=== PATIENT | female | born 1935 | race Caucasian/White ===

== ENCOUNTER → 2016-07-04 | Outpatient (CLI) | payer MEDICARE, BC ==
--- NOTE | 2016-07-04 12:35 | RAD ---
SHAISTA, 07/04/2016: History: Abdominal pain, constipation There is a moderate amount of stool scattered throughout the colon. The abdominal gas pattern is otherwise unremarkable. There is no evidence of organomegaly. Aortoiliac calcific plaquing is present. Mild degenerative changes are evident in the spine. IMPRESSION: Increased stool in the colon.
== END | disposition home or self-care (01) ==
LOC: DXRADRC 11:13
PROVIDERS: ATTEND General Practice
DX: K59.00 Constipation, unspecified (principal); R10.84 Generalized abdominal pain
CPT/HCPCS: 74000

== ENCOUNTER → 2016-09-20 | Outpatient (CLI) | payer MEDICARE, BC ==
[2016-09-20] MEDS: BARIUM SULFATE 60% 355 ML SUSP PO ONE ×2 (11:27)
--- NOTE | 2016-09-20 12:13 | RAD ---
Indication loose stools for several months. In anticipation of a small bowel series preliminary films of the abdomen were obtained. The preliminary films are unremarkable. Contrast was administered orally and followed through the small bowel to the large bowel. Transit to the large bowel is relatively rapid. Contrast administered orally is seen in the large bowel 20 minutes following the oral administration of same. Jejunal loops appear normal. Ileal loops also appeared normal. No strictured segment or mass was seen. No strictured segment is seen in the terminal ileum. 3 spot fluoroscopic images were obtained associated with the exam. Fluoroscopy time associated with the study was 0.8 minutes. IMPRESSION: Normal small bowel series
== END | disposition home or self-care (01) ==
LOC: RAD 10:40
PROVIDERS: ATTEND Internal Medicine Gastroenterology
DX: R19.7 Diarrhea, unspecified (principal)
CPT/HCPCS: 74250

== ENCOUNTER → 2017-08-21 | Outpatient (CLI) | payer MEDICARE, BC ==
--- NOTE | 2017-08-21 18:17 | RAD ---
Swallow study 08/21/2017 INDICATION: Dysphagia. COMPARISON: None available. TECHNIQUE: Fluoroscopic evaluation of swallow function was performed after the ingestion of thin and nectar thick barium liquids as well as pureed and solid compounds. Fluoroscopy time: 2.3 minutes Number images: 0 FINDINGS: There is no aspiration or penetration with all consistencies ingested. There is minimal premature spillage with pureed substances into the vallecula. No nasopharyngeal reflux. There is minimal residual noted after the thin liquids within the vallecula and perform sinuses which cleared after subsequent swallow. IMPRESSION: No evidence for aspiration with all consistencies ingested. Please refer to the separate speech pathology report for further details. Electronically signed by: Radha Sun MD (08/21/2017 6:14 PM) [id number]
== END | disposition home or self-care (01) ==
LOC: DXRAD 12:52
PROVIDERS: ATTEND General Practice
DX: R13.10 Dysphagia, unspecified (principal)
CPT/HCPCS: 74230; 92611; G8996; G8997; G8998

== ENCOUNTER 2018-12-17 10:50 | Emergency (ER) | payer MEDICARE, BC ==
[~2018-12-17] VITALS: Ht 162.6 cm; Wt 66.2 kg
--- NOTE | 2018-12-17 12:15 | RAD ---
CT HEAD INDICATION: Trauma COMPARISON: None Available. Exposure: One or more of the following individualized dose reduction techniques were utilized for this examination: 1. Automated exposure control 2. Adjustment of the mA and/or kV according to patient size 3. Use of iterative reconstruction technique TECHNIQUE: 5 mm contiguous axial images were obtained from the skull base to the vertex in both bone and soft tissue algorithm. FINDINGS: No abnormal attenuation within the brain parenchyma. No evidence of acute intracranial hemorrhage. No extra-axial fluid collections. No mass effect or midline shift. Ventricular size is appropriate. Basal cisterns are patent. No fractures identified.Figueroa-white differentiation is preserved.Globes and orbits are within normal limits. Paranasal sinuses and mastoid air cells are clear. IMPRESSION: No acute intracranial findings. Electronically signed by: Carlos Boyd MD (12/17/2018 12:12 PM) [facility]
--- NOTE | 2018-12-17 12:24 | RAD ---
Examination: LUMBAR SPINE 2-3V, HAND LEFT 3V History: Trauma, fell last night, pain. Bruising along the proximal metacarpals. Comparison/Correlation: None Findings: Three-view exam of the left hand was performed. Degenerative remodeling and spurring of the distal interphalangeal joints of the second through the fifth digits is noted. Degenerative narrowing and remodeling of the proximal interphalangeal joints are lesser extent are also seen and this is greatest at the second digit. Metacarpophalangeal joints are unremarkable. No fracture or bony destruction. No radiopaque foreign body. Soft tissues are grossly unremarkable. Three-view lumbar spine x-ray exam was performed including frontal and lateral views. Alignment of the lumbar spine is normal. Severe disc space narrowing is present from L4 to S1 with endplate sclerosis. Moderate L3-4 disc space narrowing is also suggested. No fracture or bony destruction. Sacroiliac joint degenerative changes are present. Vertebral body heights are adequate. Impression: Interphalangeal joint degenerative changes. No acute process. Degenerative changes of the lower lumbar spine. No acute process. Electronically signed by: Shin Echols MD (12/17/2018 12:21 PM) [facility]
[2018-12-17 12:47] VITALS: BP 138/59
--- NOTE | 2018-12-17 12:48 | PHYS DOC ---
Past History Past Medical History: CAD, High Cholesterol, Other Additional Past Medical Histor: PARKINSONS Past Surgical History: Coronary Bypass Surgery, Other Additional Past Surgical Histo: CARPAL TUNNEL Alcohol Use: None Drug Use: None Adult General Chief Complaint Chief Complaint: MECHANICAL FALL HPI HPI Patient is a 83-year-old female suffered a mechanical fall fecal caught up when she was getting up from a chair yesterday hit head left arm and left low back pain is [id number] tenderness of some tingling going down to the buttock area no blood thinners no loss of consciousness no recent illnesses no fever symptoms are moderate slowly worsening with time dull in nature Review of Systems Review of Systems Constitutional: Denies fever or chills [] Eyes: Denies change in visual acuity, redness, or eye pain [] HENT: Denies nasal congestion or sore throat [] GI: Denies abdominal pain, nausea, vomiting, bloody stools or diarrhea [] : Denies dysuria or hematuria [] Musculoskeletal: Neurologic: Denies headache, focal weakness or sensory changes [] All other systems were reviewed and found to be within normal limits, except as documented in this note. Allergies Allergies Allergies Coded Allergies Type Severity Reaction Last Updated Verified protamine Adverse Reaction Severe Lowers blood pressure 09/20/16 Yes Physical Exam Physical Exam Constitutional: Well developed, well nourished, no acute distress, non-toxic appearance. [] HENT: Normocephalic, contusion noted zygomatic arch on the left, bilateral external ears normal, oropharynx moist, no oral exudates, nose normal. [] Eyes: PERRLA, EOMI, conjunctiva normal, no discharge. [] Neck: Normal range of motion, no tenderness, supple, no stridor. [] Cardiovascular:Heart rate regular rhythm, no murmur [] Lungs & Thorax: Bilateral breath sounds clear to auscultation [] Abdomen: Bowel sounds normal, soft, no tenderness, no masses, no pulsatile masses. [] Skin: Warm, dry, no erythema, no rash. [] Back: Mild paraspinous tenderness on the left Extremities: Contusion with ecchymosis noted left dorsum of the hand ring was removed by me no snuffbox tenderness Neurologic: Alert and oriented X 3, normal motor function, normal sensory function, no focal deficits noted. [] Psychologic: Affect normal, judgement normal, mood normal. [] Current Patient Data Vital Signs Vital Signs Date Time Temp Pulse Resp B/P (MAP) Pulse Ox O2 Delivery O2 Flow Rate FiO2 12/17/18 11:20 98.3 62 16 99 Room Air EKG EKG [] Radiology/Procedures Radiology/Procedures [] Course & Med Decision Making Course & Med Decision Making Pertinent Labs and Imaging studies reviewed. (See chart for details) []Imaging of traumatic areas was negative acute patient was reassured ambulate with a steady gait in the emergency room head CT hand x-ray lumbar spine x-ray all negative Dragon Disclaimer Dragon Disclaimer This electronic medical record was generated, in whole or in part, using a voice recognition dictation system. Departure Departure: Impression: Primary Impression: Head injury Disposition: 01 HOME, SELF-CARE Condition: STABLE Patient Instructions: Head Injury, Adult, [id number] ROSALIO SERVIN MD Dec 17, 2018 12:48
== END 2018-12-17 12:51 | disposition home or self-care (01) ==
LOC: ER 10:50
DX: S00.83XA Contusion of other part of head, initial encounter (principal); S60.222A Contusion of left hand, initial encounter; R51 Headache; M54.5 Low back pain; I25.810 Atherosclerosis of coronary artery bypass graft(s) without angina pectoris; E78.00 Pure hypercholesterolemia, unspecified; Z88.8 Allergy status to other drugs, medicaments and biological substances; W18.09XA Striking against other object with subsequent fall, initial encounter; Y93.89 Activity, other specified; Y92.89 Other specified places as the place of occurrence of the external cause; Y99.8 Other external cause status
CPT/HCPCS: 70450; 72100; 73130; 99284

== ENCOUNTER 2019-01-26 11:48 | Inpatient (IN) | payer MEDICARE, BC ==
[~2019-01-26] VITALS: Ht 162.6 cm; Wt 67.4 kg
--- NOTE | 2019-01-26 12:29 | PHYS DOC ---
Past History Past Medical History: CAD, High Cholesterol, Other Additional Past Medical Histor: PARKINSONS Past Surgical History: Coronary Bypass Surgery, Other Additional Past Surgical Histo: CARPAL TUNNEL Alcohol Use: None Drug Use: None Adult General Chief Complaint Chief Complaint: COUGH HPI HPI 83-year-old female presents with 3-4 day history of cough. She is now having productive cough with a thicker yellowish sputum. Patient has no history of COPD or smoking. She has not measured a fever, but admits to chills at night last night. She has general weakness due to this illness. She denies chest pain. She has no other complaints at this time. Review of Systems Review of Systems Constitutional: chills. general weakness [] Eyes: Denies change in visual acuity, redness, or eye pain [] HENT: Denies nasal congestion or sore throat [] Respiratory: Copugh with shortness of breath [] Cardiovascular: No additional information not addressed in HPI [] GI: Denies abdominal pain, nausea, vomiting, bloody stools or diarrhea [] : Denies dysuria or hematuria [] Musculoskeletal: Denies back pain or joint pain [] Integument: Denies rash or skin lesions [] Neurologic: Denies headache, focal weakness or sensory changes [] Endocrine: Denies polyuria or polydipsia [] All other systems were reviewed and found to be within normal limits, except as documented in this note. Allergies Allergies Allergies Coded Allergies Type Severity Reaction Last Updated Verified protamine Adverse Reaction Severe Lowers blood pressure 09/20/16 Yes Physical Exam Physical Exam Constitutional: Well developed, well nourished, no acute distress, non-toxic appearance. [] HENT: Normocephalic, atraumatic, bilateral external ears normal, oropharynx moist, no oral exudates, nose normal. [] Eyes: PERRLA, EOMI, conjunctiva normal, no discharge. [] Neck: Normal range of motion, no tenderness, supple, no stridor. [] Cardiovascular:Heart rate regular rhythm, no murmur [] Lungs & Thorax: Bilateral breath sounds clear to auscultation [] Abdomen: Bowel sounds normal, soft, no tenderness, no masses, no pulsatile masses. [] Skin: Warm, dry, no erythema, no rash. [] Back: No tenderness, no CVA tenderness. [] Extremities: No tenderness, no cyanosis, no clubbing, ROM intact, no edema. [] Neurologic: Alert and oriented X 3, normal motor function, normal sensory function, no focal deficits noted. [] Psychologic: Affect normal, judgement normal, mood normal. [] EKG EKG Sinus rhythm, rate 78, normal axis, no ST elevations or depressions.[] Radiology/Procedures Radiology/Procedures [] Course & Med Decision Making Course & Med Decision Making Pertinent Labs and Imaging studies reviewed. (See chart for details) Asians no a white count of 14.7. She does not have a fever. She is not t achycardic. It is normal. Her blood pressures normal. Her chest x-ray significant for left-sided pneumonia. Jazmin in the ED. I spoke with Dr. Robins and he has accepted the patient for admission. [] Dragon Disclaimer Dragon Disclaimer This electronic medical record was generated, in whole or in part, using a voice recognition dictation system. Departure Departure: Impression: Primary Impression: Pneumonia Disposition: ADMITTED INPATIENT Admitting Physician: Kwasi Robins Condition: STABLE Referrals: KAILASH SEALS DO (PCP) Problem Qualifiers Primary Impression: Pneumonia Pneumonia type: due to unspecified organism Laterality: left Lung location: upper lobe of lung Qualified Codes: J18.9 - Pneumonia, unspecified organism ROSEMARIE SHELTON DO Jan 26, 2019 12:29
[2019-01-26 12:30] LABS: BASO % 0 % (0-3); EOS % 0 % (0-3); HEMATOCRIT 37.2 % (36.0-47.0); HEMOGLOBIN 12.1 g/dL (12.0-15.5); LYMPH # 0.5 x10^3/uL (1.0-4.8); LYMPH % 4 % (24-48); MEAN CORPUSCULAR HEMOGLOBIN 31 pg (25-35); MEAN CORPUSCULAR HGB CONC 33 g/dL (31-37); MEAN CORPUSCULAR VOLUME 96 fL (79-100); MONO # 0.9 x10^3/uL (0.0-1.1); MONO % 6 % (0-9); NEUT # 13.2 x10^3uL (1.8-7.7); NEUT % 90 % (31-73); PLATELET COUNT 250 x10^3/uL (140-400); RED BLOOD COUNT 3.87 x10^6/uL (3.50-5.40); RED CELL DISTRIBUTION WIDTH 12.7 % (11.5-14.5); WHITE BLOOD COUNT 14.7 x10^3/uL (4.0-11.0)
--- NOTE | 2019-01-26 12:45 | RAD ---
CHEST AP ONLY 01/26/2019 12:00 PM INDICATION: Cough COMPARISON: None available TECHNIQUE: Portable frontal view of the chest is provided. FINDINGS: The cardiomediastinal silhouette is within normal limits. Median sternotomy changes are present. Consolidative changes identified in the left upper lobe which may represent atelectasis versus infiltrate. A central left suprahilar mass remains in the differential. There are no significant pleural effusions. There is no pulmonary vascular congestion. No pneumothorax. IMPRESSION: Left upper lobe/lingular atelectasis and/or infiltrate. Central obstructive mass remains in the differential and follow-up to resolution versus CT chest is recommended. Electronically signed by: Radha Sun MD (01/26/2019 12:42 PM) [facility]
[2019-01-26 12:48] LABS: ALBUMIN 2.6 g/dL (3.4-5.0); ALBUMIN/GLOBULIN RATIO 0.5 (1.0-1.7); ALK PHOS 131 U/L (46-116); ANION GAP 12 (6-14); AST (SGOT) 29 U/L (15-37); BLOOD UREA NITROGEN 13 mg/dL (7-20); BUN/CREATININE RATIO 11 (6-20); CALCIUM 9.1 mg/dL (8.5-10.1); CARBON DIOXIDE 25 mmol/L (21-32); CHLORIDE 99 mmol/L (98-107); CREATININE 1.2 mg/dL (0.6-1.0); GFR 42.9; GLUCOSE 124 mg/dL (70-99); POTASSIUM 4.2 mmol/L (3.5-5.1); SODIUM 136 mmol/L (136-145); TOTAL BILIRUBIN 1.5 mg/dL (0.2-1.0); TOTAL PROTEIN 7.4 g/dL (6.4-8.2)
[2019-01-26 12:49] LABS: ALT (SGPT) < 6 U/L (14-59)
[2019-01-26] MEDS ORDERED: PIPERACILLIN/TAZOBACTAM 3.375 GM in IV NORMAL SALINE 50ML 50 ML IV ONE (13:15)
[2019-01-26] MEDS ORDERED: IV NORMAL SALINE 50ML 50 ML ONE (13:25)
[2019-01-26 13:26] LABS: BILIRUBIN,URINE NEG (NEG); CLARITY,URINE HAZY; COLOR,URINE AMBER; GLUCOSE,URINE NEG (NEG)
[2019-01-26] MEDS ORDERED: PIPERACILLIN/TAZOBACTAM 3.375 GM VIAL IV ONE (13:26)
[2019-01-26 13:29] LABS: NITRITE,URINE NEG (NEG); UROBILINOGEN,URINE 0.2 mg/dL (0.2 mg/dL)
[2019-01-26 13:30] LABS: BACTERIA,URINE FEW /HPF (0-FEW); RBC,URINE RARE /HPF (0-2)
[2019-01-26 13:31] LABS: SQUAMOUS EPITHELIAL CELL,UR MANY /LPF
[2019-01-26] MEDS ORDERED: ACETAMINOPHEN 325 MG TABLET PO PRN (14:00)
[2019-01-26] MEDS ORDERED: ONDANSETRON PF 4 MG/2 ML VIAL. IV PRN (14:00)
[2019-01-26 14:45] VITALS: BP 153/70
[2019-01-26] MEDS ORDERED: ACET500T68 PO (15:18)
[2019-01-26] MEDS ORDERED: [UNRECOGNIZED DRUG - OTHER] PO (15:18)
[2019-01-26] MEDS ORDERED: PROG100C10 PO (15:18)
[2019-01-26] MEDS ORDERED: ASPI-630 PO (15:18)
[2019-01-26] MEDS ORDERED: DONE10TA7 PO (15:18)
[2019-01-26] MEDS ORDERED: LACT1CAP6 PO (15:18)
[2019-01-26] MEDS ORDERED: PROG200C10 PO (15:18)
[2019-01-26] MEDS ORDERED: CHOL100014 PO (15:18)
[2019-01-26] MEDS ORDERED: UBID100T5 PO (15:18)
[2019-01-26] MEDS ORDERED: CARB1TAB22 PO ×2 (15:18)
[2019-01-26] MEDS ORDERED: MULT-240 PO (15:18)
[2019-01-26] MEDS ORDERED: OMEG1CAP38 PO (15:18)
[2019-01-26] MEDS ORDERED: [UNRECOGNIZED DRUG - OTHER] PO (15:18)
--- NOTE | 2019-01-26 15:20 | NUR ---
NURSING NOTE ADMIT PT ADMIT TO ROOM 107 VIA EMS ACCOMPANIED BY EMS PERSONNEL AT 1435. PT DX WITH PNEUMONIA. DR SMITH EVALUATED PT AND IS PUTTING IN ORDERS NOW. PT SETTLED IN ROOM. PT IS SOA WHEN AMBULATING AND IS CURRENTLY AT 94% ROOM AIR. NO COMPLICATIONS. AGUSTIN THOMAS.
[2019-01-26] MEDS ORDERED: ACETAMINOPHEN 500 MG TABLET PO PRN (15:30)
--- NOTE | 2019-01-26 15:35 | HP ---
ADMIT DATE: 01/26/2019 HISTORY OF PRESENT ILLNESS: The patient is an 83-year-old female patient who came to the Emergency Room complaining of cough that has been going on for the last 3-4 days. The cough is now productive with thick yellowish to greenish sputum. Did complain of left-sided chest pain that is aggravated by taking a deep breath, but did complain of shortness of breath, but denied any dizziness, lightheadedness or vertigo. She was evaluated in the Emergency Room. Her lab work showed a white cell count slightly elevated at 14,700 and her chest x-ray showed that she has left upper lobe irregular lingular atelectasis/infiltrate and was admitted to be treated for community-acquired pneumonia. PAST MEDICAL HISTORY: Significant for hypertension, hyperlipidemia, coronary artery disease, TIA, osteoarthritis, gout. She is also known to have celiac disease and Parkinson's disease. PAST SURGICAL HISTORY: Significant for coronary artery bypass graft surgery, bilateral cataract extraction, bilateral carpal tunnel release, esophagogastroduodenoscopy and colonoscopy. ALLERGIES: SHE IS ALLERGIC TO PROTAMINE AND WHEAT. SHE APPARENTLY HAS ALLERGY TO GLUTEN. MEDICATIONS: Apparently, the list of medication that she was incomplete and her daughter is going to bring the rest of the medication list. FAMILY HISTORY: She has 4 brothers, the youngest of lung cancer because of [employer]. She has 3 sisters in good health. Her father at age of 70 because of pancreatic cancer. Mother at age of 93 because of congestive heart failure. SOCIAL HISTORY: She lives in independent living [facility]. She never smoked, does not drink alcohol or use any recreational drugs. She worked for the [employer]. REVIEW OF SYSTEMS: She has bilateral cataract extraction. Denied any glaucoma or macular degeneration. She has bilateral tinnitus. Denied any earache or sensorineural deafness. Denied any nosebleeds, stuffy nose or postnasal drip. Denied any sore throat, sore tongue, toothache, hoarseness of voice or difficulty swallowing. Denied any nausea, vomiting, diarrhea or constipation. Denied any hematemesis, melena or hematochezia. Denied any dysuria, frequency or hematuria. She is incontinent specifically at night time. Did have left-sided chest pain, which is aggravated by taking a deep breath. Has some shortness of breath, but denied any orthopnea or paroxysmal nocturnal dyspnea. Does have cough with yellowish to greenish sputum. Denied any hemoptysis. Did have a low-grade fever. She has also chills. Denied any fever. Denied any dizziness, lightheadedness, or vertigo. PHYSICAL EXAMINATION: GENERAL: On arrival to the Emergency Room, she looked well and was clearly in no apparent respiratory distress. No pallor, jaundice, cyanosis or thyromegaly. No jugular venous distention. No limb edema. VITAL SIGNS: Her heart rate was 68, blood pressure was 130/65, temperature was 99.7, respiratory rate 20, and oxygen saturation was 94%. HEAD, EYES, EARS, NOSE AND THROAT: Showed normocephalic, atraumatic. NECK: Supple. HEART: Showed normal first and second heart sounds. No gallop, rub or murmur. CHEST: Clear to auscultation. No crepitation or rhonchi. ABDOMEN: Distended, soft, nontender. No guarding or rigidity. No organomegaly. All hernial orifices intact. Bowel sounds normal. NEUROLOGIC: She is awake, alert, responding appropriately. All cranial nerves intact. EXTREMITIES: She moves extremities without difficulty. She ambulates with a cane. LABORATORY DATA: Her lab work on arrival showed a white cell count of 14,700, hemoglobin 12, hematocrit 37, MCV 96, and platelet count of 250,000 with a manual differential showed 90% polymorphs, 4% lymphocytes. Her chemistry showed a serum sodium 136, potassium 4.2, chloride 99, bicarbonate 25, anion gap of 12, BUN 13, creatinine 0.2, estimated GFR was 43 mL per minute. Her glucose 124. Lactic acid is only 1.2, calcium was 9.1. Total bilirubin and alkaline phosphatase slightly elevated. AST and ALT are normal. Her total protein was 7.4, albumin was 2.6. Urinalysis showed the urine was barry, hazy with a pH of 7.5, specific gravity of 1.020. There was large amount of protein, negative for glucose, trace of ketones, negative for blood, nitrite and leukocyte esterase, rare rbc's, 1-4 wbc's, and very few bacteria. Her chest x-ray showed that the patient's cardiomediastinal silhouette is within normal limits. Median sternotomy changes are present. Consolidative changes identified in the left upper lobe, which may represent atelectasis versus infiltrate. The central left suprahilar mass remains in the differential. There is no significant pleural effusion. There is no pulmonary vascular congestion, no pneumothorax. ASSESSMENT AND PLAN: The patient was admitted with community-acquired pneumonia. She apparently has received Zosyn. My plan is to reconcile all her medication. I will add Zithromax and we will follow her labs and response on a daily basis. Her oxygen saturation is 95% and apparently has had influenza about a month ago DICTATION ENDS HERE. HALI SMITH MD DR: ASHLEY/lisa JOB#: [id number] / [id number]
[2019-01-26] MEDS ORDERED: AZITHROMYCIN 500 MG in IV NORMAL SALINE 250ML 250 ML IV ONE (16:00)
[2019-01-26] MEDS ORDERED: PIP/TAZO PER PHARMACY MC PRN (16:30)
--- NOTE | 2019-01-26 16:41 | EKG ---
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
[2019-01-26] MEDS ORDERED: ATOR10TA60 PO (17:24)
[2019-01-26] MEDS ORDERED: ESCITALOPRAM OXA5 MG PO (17:24)
[2019-01-26] MEDS ORDERED: FESO4TAB PO (17:27)
[2019-01-26] MEDS ORDERED: MIRA50TA PO (17:27)
--- NOTE | 2019-01-26 17:32 | NUR ---
NURSING NOTE MEDICATIONS PT DOES NOT HAVE A LIST OF HER MEDICATIONS. PT USES MANY PHARMACY AND MAIL ORDERS. PT DOES NOT KNOW THE NAMES OF HER MEDICATIONS AND ONLY HAS THE PILLS WITH HER AND NO BOTTLES. PT STATES SHE SORTS HER PILLS IN THE DAILY ORGANIZER AND DOES NOT HAVE THE BOTTLE. CALLED [facility] AND GOT MANY MEDS THAT WERE AVAILABLE. UNABLE TO CONFIRM OTHER MEDICATIONS AT THIS TIME. AGUSTIN THOMAS. Addendum: 01/26/19 at 1757 by MARTHA VALENCIA RN RN PHONED [facility], THEY STATED THAT PTS SHOULD KEEP UPDATED LIST IN RED FOLDER IN THEIR ROOM. PT DENIES KNOWING ABOUT THIS FOLDER. PT DAUGHTER READ OVER MEDICATIONS THAT ARE ENTERED UNDER HOME MEDS AND CONFIRMED THEY ARE CORRECT. MEDS CONTINUED BY DR SMITH. AGUSTIN THOMAS.
[2019-01-26] MEDS ORDERED: CETI10CA PO (17:40)
[2019-01-26] MEDS: PIPERACILLIN/TAZOBACTAM 2.25 GM in IV NORMAL SALINE 50ML 50 ML IV SCH ×2 (18:12→23:45)
[2019-01-26 20:24] VITALS: BP 116/68
[2019-01-26] MEDS ORDERED: PROGESTERONE PO SCH (21:00)
[2019-01-26] MEDS ORDERED: CARBIDOPA/LEVODOPA 25/100MG TABLET PO SCH (21:00)
[2019-01-26] MEDS: OXYBUTYNIN CHLORIDE 5 MG TABLET PO SCH (21:47)
[2019-01-26] MEDS: CARBIDOPA/LEVODOPA CR 25/100MG TABLET.SA PO SCH (21:47)
[2019-01-26] MEDS: CETIRIZINE HCL 10 MG TABLET PO SCH (21:47)
[2019-01-26] MEDS: OMEGA-3 FATTY ACIDS/FISH OIL 1,000 MG CAPSULE. PO SCH (21:48)
[2019-01-26 23:57] VITALS: BP 129/66
[2019-01-27 05:27] VITALS: BP 132/70
[2019-01-27] MEDS: CARBIDOPA/LEVODOPA 25/100MG TABLET PO SCH ×3 (06:12→16:45)
[2019-01-27] MEDS: PIPERACILLIN/TAZOBACTAM 2.25 GM in IV NORMAL SALINE 50ML 50 ML IV SCH ×3 (06:15→18:00)
[2019-01-27 06:30] LABS: HEMOGLOBIN 11.8 g/dL (12.0-15.5); RED BLOOD COUNT 3.75 x10^6/uL (3.50-5.40); RED CELL DISTRIBUTION WIDTH 12.9 % (11.5-14.5); WHITE BLOOD COUNT 12.3 x10^3/uL (4.0-11.0)
[2019-01-27 06:41] LABS: ALBUMIN 2.3 g/dL (3.4-5.0); ALBUMIN/GLOBULIN RATIO 0.5 (1.0-1.7); ALK PHOS 122 U/L (46-116); ANION GAP 10 (6-14); AST (SGOT) 23 U/L (15-37); BLOOD UREA NITROGEN 12 mg/dL (7-20); BUN/CREATININE RATIO 10 (6-20); CALCIUM 8.7 mg/dL (8.5-10.1); CARBON DIOXIDE 26 mmol/L (21-32); CHLORIDE 102 mmol/L (98-107); CREATININE 1.2 mg/dL (0.6-1.0); GFR 42.9; GLUCOSE 89 mg/dL (70-99); POTASSIUM 3.5 mmol/L (3.5-5.1); SODIUM 138 mmol/L (136-145); TOTAL BILIRUBIN 1.2 mg/dL (0.2-1.0)
[2019-01-27 06:45] LABS: ALT (SGPT) < 6 U/L (14-59)
[2019-01-27] MEDS: [UNRECOGNIZED DRUG - OTHER] PO SCH ×3 (07:30→16:30)
[2019-01-27] MEDS: [UNRECOGNIZED DRUG - OTHER] PO SCH (08:19)
[2019-01-27] MEDS: LACTOBACILLUS RHAMNOSUS GG 1 CAPSULE. PO SCH (08:21)
[2019-01-27] MEDS: OMEGA-3 FATTY ACIDS/FISH OIL 1,000 MG CAPSULE. PO SCH ×2 (08:21→21:45)
[2019-01-27] MEDS: CITALOPRAM 10 MG TABLET. PO SCH (08:21)
[2019-01-27] MEDS: MULTIVITAMIN with MINERAL TABLET. PO SCH (08:22)
[2019-01-27] MEDS: DONEPEZIL HCL 10 MG TABLET PO SCH (08:22)
[2019-01-27] MEDS: ASPIRIN 81 MG TAB.CHEW PO SCH (08:22)
[2019-01-27] MEDS: ATORVASTATIN CALCIUM 10 MG TABLET. PO SCH (08:22)
[2019-01-27] MEDS: AZITHROMYCIN 250 MG TABLET. PO SCH (08:22)
[2019-01-27] MEDS: OXYBUTYNIN CHLORIDE 5 MG TABLET PO SCH ×2 (08:22→21:45)
[2019-01-27] MEDS: MIRABEGRON 25 MG TAB.ER.24H PO SCH (08:23)
[2019-01-27] MEDS: CHOLECALCIFEROL (VITAMIN D3) 1,000 UNIT TABLET PO SCH (08:25)
[2019-01-27] MEDS: UBIDECARENONE 50 MG CAPSULE. PO SCH (08:25)
[2019-01-27] MEDS ORDERED: PROGESTERONE MICRONIZED PO SCH (09:00)
[2019-01-27 10:58] VITALS: BP 120/58
[2019-01-27 14:30] VITALS: BP 103/62
[2019-01-27 18:38] VITALS: BP 121/61
[2019-01-27] MEDS: CARBIDOPA/LEVODOPA CR 25/100MG TABLET.SA PO SCH (21:45)
[2019-01-27] MEDS: CETIRIZINE HCL 10 MG TABLET PO SCH (21:45)
[2019-01-27] MEDS: PROGESTERONE PO SCH (22:00)
[2019-01-27 23:17] VITALS: BP 157/76
[2019-01-28] MEDS: PIPERACILLIN/TAZOBACTAM 2.25 GM in IV NORMAL SALINE 50ML 50 ML IV SCH ×5 (00:09→23:34)
--- NOTE | 2019-01-28 04:35 | PN ---
DATE: SUBJECTIVE: The patient is resting slightly propped up in bed, in no apparent distress. She is awake, alert. On questioning her, she continues to have cough with scanty sputum. Denied any chest pain, denied any shortness of breath. The nursing staff ____ patient was ambulatory with all the way to the bathroom, to the shower and back with a walker, maintaining her oxygen saturation at 94% on room air. OBJECTIVE: GENERAL: When I examined her, she looked pale, but no jaundice, cyanosis or thyromegaly. No jugular venous distension. No lower limb edema. VITAL SIGNS: Her heart rate was 57, blood pressure was 120/58, temperature was 97.6, respiratory rate was 16 and oxygen saturation was 94%. HEAD, EYES, EARS, NOSE AND THROAT: Normocephalic, atraumatic. NECK: Supple. HEART: Normal first and second heart sounds. No gallop or murmur. CHEST: Shows central trachea, equal bilateral expansion, air entry is present. Crepitation mostly in the left side posteriorly. I could not appreciate any rhonchi. ABDOMEN: Distended, soft, nontender. NEUROLOGIC: She is awake, alert, responding appropriately. All cranial nerves intact. She moves extremities without difficulty. She ambulates with a walker. Her intake was 1790, no output was recorded. LABORATORY DATA: Her lab work this morning showed serum sodium 138, potassium 3.5, chloride 102, bicarbonate 26, anion gap of 10, BUN 12, creatinine 1.2, estimated GFR was 43 mL per minute. Her glucose was 89, calcium was 8.7. Her lactic acid was only 1.2. Total bilirubin, AST, ALT normal. Alkaline phosphatase slightly elevated. Total protein was 7, albumin was 2.3. Urinalysis was essentially unremarkable. ASSESSMENT: Community-acquired pneumonia, for which she is on IV Zosyn and Zithromax. Other medical problems include hypertension, hyperlipidemia, coronary artery disease, transient ischemic attack, osteoarthritis and gout. She apparently is also known to have celiac disease and Parkinson's disease. PLAN: To continue with IV antibiotic. We will evaluate her again tomorrow and if she remained stable and afebrile with normal white cell count, she can be discharged home to continue with oral antibiotic. HALI SMITH MD DR: ASHLEY/lisa JOB#: [id number] / [id number]
[2019-01-28 05:50] VITALS: BP 157/79
[2019-01-28] MEDS: CARBIDOPA/LEVODOPA 25/100MG TABLET PO SCH ×3 (05:55→16:02)
[2019-01-28 06:43] LABS: HEMATOCRIT 35.2 % (36.0-47.0); HEMOGLOBIN 11.5 g/dL (12.0-15.5); RED BLOOD COUNT 3.68 x10^6/uL (3.50-5.40); RED CELL DISTRIBUTION WIDTH 12.9 % (11.5-14.5); WHITE BLOOD COUNT 9.9 x10^3/uL (4.0-11.0)
[2019-01-28 06:52] LABS: CALCIUM 8.5 mg/dL (8.5-10.1); POTASSIUM 3.9 mmol/L (3.5-5.1)
[2019-01-28] MEDS: [UNRECOGNIZED DRUG - OTHER] PO SCH ×3 (07:41→16:03)
[2019-01-28] MEDS: AZITHROMYCIN 250 MG TABLET. PO SCH (07:43)
[2019-01-28] MEDS: ATORVASTATIN CALCIUM 10 MG TABLET. PO SCH (07:43)
[2019-01-28] MEDS: ASPIRIN 81 MG TAB.CHEW PO SCH (07:43)
[2019-01-28] MEDS: MIRABEGRON 25 MG TAB.ER.24H PO SCH (07:43)
[2019-01-28] MEDS: CITALOPRAM 10 MG TABLET. PO SCH (07:43)
[2019-01-28] MEDS: CHOLECALCIFEROL (VITAMIN D3) 1,000 UNIT TABLET PO SCH (07:43)
[2019-01-28] MEDS: MULTIVITAMIN with MINERAL TABLET. PO SCH (07:43)
[2019-01-28] MEDS: OXYBUTYNIN CHLORIDE 5 MG TABLET PO SCH ×2 (07:43→21:32)
[2019-01-28] MEDS: OMEGA-3 FATTY ACIDS/FISH OIL 1,000 MG CAPSULE. PO SCH ×2 (07:43→21:32)
[2019-01-28] MEDS: DONEPEZIL HCL 10 MG TABLET PO SCH (07:43)
[2019-01-28] MEDS: UBIDECARENONE 50 MG CAPSULE. PO SCH (07:43)
[2019-01-28] MEDS: [UNRECOGNIZED DRUG - OTHER] PO SCH (07:44)
[2019-01-28] MEDS: LACTOBACILLUS RHAMNOSUS GG 1 CAPSULE. PO SCH (07:44)
[2019-01-28] MEDS: PROGESTERONE PO SCH ×2 (07:46→21:00)
[2019-01-28 10:38] VITALS: BP 150/78
--- NOTE | 2019-01-28 12:08 | NUR ---
NURSING NOTE PT STATES SHE DOES NOT WANT TO GO HOME TODAY, STATES SHE HAS BEEN IN THE BED FOR 2 DAYS WITH AN ALARM AND HASNT BEEN UP AND MOVING AROUND STATES SHE IS WEAK AND LIVES ALONE AND WOULD LIKE ONE MORE DAYS SO SHE CAN GET UP MOVING AROUND AND WALKING. TOOK PT FOR WALK DOWN HALLWAY. PT STATES SHE CAN GET AROUND IN HER ROOM FINE WITHOUT AND ALARM AND KNOWS TO CALL FOR HELP IF NEEDED. BED ALARM OFF, PT IS UP IN CHAIR EATING LUNCH. WILL LET DR SMITH KNOW PT REQUEST DURING ROUNDS. AGUSTIN THOMAS.
[2019-01-28 15:15] VITALS: BP 146/68
[2019-01-28 20:56] VITALS: BP 166/72
[2019-01-28] MEDS: CETIRIZINE HCL 10 MG TABLET PO SCH (21:32)
[2019-01-28] MEDS: CARBIDOPA/LEVODOPA CR 25/100MG TABLET.SA PO SCH (21:33)
--- NOTE | 2019-01-28 23:09 | PN ---
DATE: 01/28/2019 SUBJECTIVE: The patient is sitting comfortably in her chair, in no apparent distress. She continued to have some cough, with scanty whitish sputum. Continued to complain of weakness and deconditioning. However, she has been afebrile. Her white cell count has normalized and she is maintaining her oxygen saturation at 94% on room air. OBJECTIVE: GENERAL: When I examined her this afternoon, she looked well and was clearly in no apparent respiratory distress, somewhat pale, no jaundice, cyanosis, or thyromegaly. No jugular venous distension. No limb edema. VITAL SIGNS: Her heart rate was 56, blood pressure was 146/68, temperature was 98, respiratory rate 20, and oxygen saturation was 94%. HEAD, EYES, EARS, NOSE AND THROAT: Showed normocephalic, atraumatic. NECK: Supple. HEART: Showed normal first and second heart sounds. No gallop or murmur. CHEST: Clear to auscultation. No crepitation or rhonchi. ABDOMEN: Distended, soft, nontender. No guarding or rigidity. No organomegaly. All hernial orifice intact. Bowel sounds normal. NEUROLOGIC: She was awake, alert, responding appropriately. All cranial nerves are intact. She moves extremities without difficulty. She ambulates with a walker. Her intake was 1419. No output was recorded. LABORATORY DATA: Her lab work this morning showed a white cell count 9,900, hemoglobin 11.5, hematocrit 35, MCV 96, and platelet count 278,000. Serum sodium 142, potassium 3.9, chloride 105, bicarbonate 23, anion gap of 14, BUN 14, creatinine 1, estimated GFR was 53 mL per minute. Her glucose was 85, calcium 8.5. ASSESSMENT: 1. Community-acquired pneumonia for which she is on IV Zosyn and Zithromax. 2. Hypertension. 3. Hyperlipidemia. 4. Coronary artery disease. 5. Transient ischemic attack. 6. Osteoarthritis and gout. 7. Celiac disease. 8. Parkinson disease. PLAN: To continue with IV antibiotic. We will switch her to oral antibiotic tomorrow and seems that she probably will do better at [facility] for at least 2-3 weeks before she goes back to independent living. HALI SMITH MD DR: ASHLEY/lisa JOB#: [id number] / [id number]
[2019-01-28 23:54] VITALS: BP 162/78
[2019-01-29] MEDS: PIPERACILLIN/TAZOBACTAM 2.25 GM in IV NORMAL SALINE 50ML 50 ML IV SCH ×2 (05:14→12:15)
[2019-01-29] MEDS: CARBIDOPA/LEVODOPA 25/100MG TABLET PO SCH ×2 (05:15→11:32)
[2019-01-29 06:07] VITALS: BP 168/74
[2019-01-29] MEDS: LACTOBACILLUS RHAMNOSUS GG 1 CAPSULE. PO SCH (08:41)
[2019-01-29] MEDS: ATORVASTATIN CALCIUM 10 MG TABLET. PO SCH (08:41)
[2019-01-29] MEDS: AZITHROMYCIN 250 MG TABLET. PO SCH (08:41)
[2019-01-29] MEDS: OMEGA-3 FATTY ACIDS/FISH OIL 1,000 MG CAPSULE. PO SCH (08:41)
[2019-01-29] MEDS: OXYBUTYNIN CHLORIDE 5 MG TABLET PO SCH (08:41)
[2019-01-29] MEDS: ASPIRIN 81 MG TAB.CHEW PO SCH (08:41)
[2019-01-29] MEDS: CITALOPRAM 10 MG TABLET. PO SCH (08:41)
[2019-01-29] MEDS: [UNRECOGNIZED DRUG - OTHER] PO SCH ×2 (08:41→11:30)
[2019-01-29] MEDS: MULTIVITAMIN with MINERAL TABLET. PO SCH (08:41)
[2019-01-29] MEDS: DONEPEZIL HCL 10 MG TABLET PO SCH (08:41)
[2019-01-29] MEDS: MIRABEGRON 25 MG TAB.ER.24H PO SCH (08:42)
[2019-01-29] MEDS: CHOLECALCIFEROL (VITAMIN D3) 1,000 UNIT TABLET PO SCH (08:42)
[2019-01-29] MEDS: UBIDECARENONE 50 MG CAPSULE. PO SCH (08:42)
[2019-01-29] MEDS: PROGESTERONE PO SCH (08:42)
[2019-01-29] MEDS: [UNRECOGNIZED DRUG - OTHER] PO SCH (08:43)
[2019-01-29 10:40] VITALS: BP 150/72
[2019-01-29] MEDS ORDERED: AMOX1TAB58 PO (12:53)
--- NOTE | 2019-01-29 12:56 | DISCH ---
DISCHARGE ORDERS DISCHARGE DATE: Jan 29, 2019 FINAL DIAGNOSIS cap CONDITION AT DISCHARGE: Stable Code Status: DNR/DNI SNF STAY <30 DAYS: Yes POST DISCHARGE ORDERS: ACTIVITY ORDERS: Activity as tolerated DIET AFTER DISCHARGE: Regular DISCHARGE MEDICATIONS: Home Meds Active Scripts Amoxicillin/Potassium Clav (AUGMENTIN 500-125 TABLET) 1 Each Tablet, 1 TAB PO BID for cap for 6 Days, #12 TAB 0 Refills Prov:HALI SMITH MD 01/29/19 Reported Medications Cetirizine Hcl (ZYRTEC) 10 Mg Capsule, 10 MG PO HS for ., CAP 01/26/19 Fesoterodine Fumarate (TOVIAZ) 4 Mg Tab.er.24h, 1 TAB PO DAILY for ., #30 TAB 11 Refills 01/26/19 Mirabegron (MYRBETRIQ) 50 Mg Tab.er.24h, 50 MG PO DAILY for ., TAB.SR 01/26/19 Escitalopram Oxalate (ESCITALOPRAM OXALATE) 5 Mg Tablet, 5 MG PO DAILY for ANTI- DEPRESSANT, #30 TAB 0 Refills 01/26/19 Atorvastatin Calcium (ATORVASTATIN CALCIUM) 10 Mg Tablet, 1 TAB PO DAILY for CHOLESTEROL, #30 TAB 5 Refills 01/26/19 [t2,D5,S125, P200] No Conflict Check, 0.5 TAB PO DAILY for supplement 01/26/19 [gastrogest] No Conflict Check, 2 TAB PO TIDBFRMEAL for supplement 01/26/19 Progesterone,Micronized (PROGESTERONE) 200 Mg Capsule, 1 CAP PO DAILY for supplement for 30 Days, #30 CAP 0 Refills 01/26/19 Progesterone,Micronized (PROGESTERONE) 100 Mg Capsule, 1 CAP PO QHS for supplement for 30 Days, #30 CAP 0 Refills 01/26/19 Lactobacillus Acidophilus (PROBIOTIC) 1 Each Capsule, 1 CAP PO DAILY for supplement for 10 Days, #10 CAP 0 Refills 01/26/19 Buffalo-3 Fatty Acids/Fish Oil (OMEGA 3 FISH OIL SOFTGEL) 1 Each Capsule., 1 EACH PO BID for supplement, CAP 01/26/19 Cholecalciferol (Vitamin D3) (VITAMIN D3) 1,000 Unit Capsule, 1 CAP PO DAILY for bid for 30 Days, #30 CAP 0 Refills 01/26/19 Multivitamin (DAILY VITAMIN FORMULA) 1 Each Tablet, 1 TAB PO DAILY for supplement for 30 Days, #30 TAB 0 Refills 01/26/19 Acetaminophen (ACETAMINOPHEN) 500 Mg Tablet, 1 TAB PO PRN Q6HRS PRN for pain or fever for 15 Days, #60 TAB 0 Refills 01/26/19 Aspirin (ASPIRIN) 81 Mg Tab.chew, 81 MG PO DAILY for heart, TAB 01/26/19 Carbidopa/Levodopa (CARBIDOPA-LEVODOPA 25-100 TAB) 1 Each Tablet, 1 EACH PO QHS for tremors, TAB 01/26/19 Carbidopa/Levodopa (CARBIDOPA-LEVODOPA 25-100 TAB) 1 Each Tablet, 2.5 TAB PO TID for tremors for 30 Days, #225 TAB 0 Refills 01/26/19 Donepezil Hcl (DONEPEZIL HCL) 10 Mg Tablet, 1 TAB PO DAILY for memory, #90 TAB 1 Refill 01/26/19 Discontinued Reported Medications Ubidecarenone (COENZYME Q10) 100 Mg Tablet, 1 TAB PO DAILY for daily for 30 Days, #30 TAB 0 Refills 01/26/19 HALI SMITH MD Jan 29, 2019 12:56
[2019-01-29 13:12] LABS: BASO # 0.1 x10^3/uL (0.0-0.2); BASO % 1 % (0-3); EOS # 0.3 x10^3/uL (0.0-0.7); EOS % 5 % (0-3); HEMATOCRIT 36.9 % (36.0-47.0); LYMPH # 1.1 x10^3/uL (1.0-4.8); LYMPH % 15 % (24-48); MEAN CORPUSCULAR HEMOGLOBIN 31 pg (25-35); MEAN CORPUSCULAR HGB CONC 33 g/dL (31-37); MEAN CORPUSCULAR VOLUME 95 fL (79-100); MONO # 0.6 x10^3/uL (0.0-1.1); MONO % 8 % (0-9); NEUT # 5.2 x10^3uL (1.8-7.7); NEUT % 72 % (31-73); PLATELET COUNT 325 x10^3/uL (140-400); RED BLOOD COUNT 3.86 x10^6/uL (3.50-5.40); RED CELL DISTRIBUTION WIDTH 12.9 % (11.5-14.5); WHITE BLOOD COUNT 7.3 x10^3/uL (4.0-11.0)
[2019-01-29 13:32] LABS: ALBUMIN 2.3 g/dL (3.4-5.0); ALBUMIN/GLOBULIN RATIO 0.5 (1.0-1.7); CALCIUM 8.8 mg/dL (8.5-10.1); CREATININE 1.1 mg/dL (0.6-1.0); GFR 47.4; TOTAL BILIRUBIN 0.8 mg/dL (0.2-1.0); TOTAL PROTEIN 7.3 g/dL (6.4-8.2)
--- NOTE | 2019-01-29 14:56 | DS ---
DATE OF DISCHARGE: HOSPITAL COURSE: The patient is an 83-year-old female patient who was admitted with a complaint of cough that has been going on for the last 3-4 days prior to admission. The cough is productive with thick yellowish to greenish sputum. She also complained of left-sided chest pain that is aggravated by taking a deep breath, but denied any dizziness, lightheadedness or vertigo. She was evaluated in the Emergency Room, was found to have leukocytosis. Chest x-ray showed that she has left upper lobe irregular lingular atelectasis, infiltrate and was admitted and was treated with community-acquired pneumonia. Her blood cultures showed no growth after 3 days. The patient remained afebrile, hemodynamically stable. White cell count has normalized and her oxygen saturation was 96% on room air, and therefore a decision was made to discharge her to [facility] to continue to pursue rehabilitation. She continued to be deconditioned and debilitated. PHYSICAL EXAMINATION: GENERAL: When I examined her this afternoon, she was sitting comfortably in her chair, in no apparent respiratory distress. No pallor, jaundice, cyanosis or thyromegaly. No jugular venous distension. No lower limb edema. VITAL SIGNS: Her heart rate was 56, blood pressure was 150/72, temperature was 98.1, respiratory rate was 18 and oxygen saturation was 96%. HEAD, EYES, EARS, NOSE AND THROAT: Showed normocephalic, atraumatic. NECK: Supple. HEART: Showed normal first and second heart sounds. No gallop or murmur. CHEST: Clear to auscultation. No crepitation or rhonchi. ABDOMEN: Distended, soft, nontender. No guarding or rigidity. No organomegaly. All hernial orifice intact. Bowel sounds normal. NEUROLOGIC: She was awake, alert, responding appropriately. All cranial nerves intact. She moves extremities without difficulty, ambulates with a walker. She has parkinsonian features. Her intake was 1490, no output was recorded. LABORATORY DATA: Her lab work showed her serum sodium 142, potassium 3.9, chloride 105, bicarbonate 23, anion gap of 14, BUN 14, creatinine 1, estimated GFR was 53 mL per minute. Her glucose was 85, calcium was 8.5. White cell count is down to 9900, hemoglobin 11.5, hematocrit 35, MCV 96, and platelet count 278,000. Urinalysis was unremarkable. DISCHARGE MEDICATIONS: She was discharged to [facility] to continue on Augmentin 500 mg twice a day for 6 more days, acetaminophen 500 mg every 6 hours, aspirin 81 mg once a day, atorvastatin calcium 10 mg at bedtime, carbidopa/levodopa 25/100 2.5 tablets 3 times a day, carbidopa/levodopa 1 tablet at bedtime, cetirizine 10 mg at bedtime, cholecalciferol for vitamin D3 1000 International Units once a day, Aricept 10 mg at bedtime, escitalopram oxalate 5 mg daily, fesoterodine for Toviaz 4 mg at bedtime, ____ 2 tablets 3 times a day before meals, lactobacillus acidophilus 1 capsule once a day, Myrbetriq 50 mg daily, multivitamin 1 tablet once a day, omega-3 fatty acid 1 capsule twice a day, progesterone 100 mg at bedtime, progesterone 200 mg daily. FINAL DISCHARGE DIAGNOSES: 1. Community-acquired pneumonia. 2. Parkinson disease. 3. Hypertension. 4. Hyperlipidemia. 5. Coronary artery disease. 6. Transient ischemic attack. 7. Osteoarthritis. 8. ____. Dictation Ends Here. HALI SMITH MD DR: ASHLEY/lisa JOB#: [id number] / [id number]
--- NOTE | 2019-01-29 14:58 | NUR ---
Discharge Note: [facility] [address] Discharge instructions and discharge home medications reviewed with Patient and a copy given. All questions have been answered and understanding verbalized. The following instructions and handouts were given: PNEUMONIA ISO Discontinued lines and drains: IV IN RIGHT AC DISCONTINUED Patient discharged to [facility] skilled, accompanied by [facility] transport.
== END 2019-01-29 14:53 | DRG 193 ==
LOC: ER 11:48 → 1 SOUTH 14:08
PROVIDERS: ADMIT Internal Medicine; ATTEND Internal Medicine
DX: J18.9 Pneumonia, unspecified organism (principal); E43 Unspecified severe protein-calorie malnutrition; J98.11 Atelectasis; E78.00 Pure hypercholesterolemia, unspecified; G20 Parkinson's disease; E78.5 Hyperlipidemia, unspecified; I25.10 Atherosclerotic heart disease of native coronary artery without angina pectoris; M19.90 Unspecified osteoarthritis, unspecified site; Z98.41 Cataract extraction status, right eye; I10 Essential (primary) hypertension; M10.9 Gout, unspecified; Z98.42 Cataract extraction status, left eye; Z82.49 Family history of ischemic heart disease and other diseases of the circulatory system; Z80.1 Family history of malignant neoplasm of trachea, bronchus and lung; Z68.25 Body mass index [BMI] 25.0-25.9, adult; Z95.1 Presence of aortocoronary bypass graft; Z88.8 Allergy status to other drugs, medicaments and biological substances; Z86.73 Personal history of transient ischemic attack (TIA), and cerebral infarction without residual deficits; Z80.0 Family history of malignant neoplasm of digestive organs
CPT/HCPCS: 36415; 71045; 80048; 80053; 81001; 83605; 84484; 85025; 85027; 87040; 93005; 96365; J0456; J2543; J7050; 99285-25

== ENCOUNTER → 2019-07-20 | Outpatient (CLI) | payer MEDICARE, BC ==
[~2019-07-20] MED LIST: ACET500T68 PO; AMOX1TAB58 PO; ASPI-630 PO; ATOR10TA60 PO; CARB1TAB22 PO; CETI10CA PO; CHOL100014 PO; DONE10TA7 PO; ESCITALOPRAM OXA5 MG PO; FESO4TAB PO; LACT1CAP6 PO; MIRA50TA PO; MULT-240 PO; OMEG1CAP38 PO; PROG100C10 PO; PROG200C10 PO; UBID100T5 PO; [UNRECOGNIZED DRUG - OTHER] PO; [UNRECOGNIZED DRUG - OTHER] PO
--- NOTE | 2019-07-20 11:43 | RAD ---
EXAM: Pelvic sonogram. HISTORY: Postmenopausal bleeding. TECHNIQUE: Transabdominal and transvaginal sonographic imaging of the pelvis was performed. COMPARISON: None. FINDINGS: The uterus is retroverted. There is heterogeneous uterine parenchyma with a suspected hypoechoic fibroid within the fundus measuring 2.0 cm. The endometrial stripe measures 3 mm in thickness. There is a 4 mm calcification within the uterine fundus which may be due to a calcified fibroid. There are prominent bilateral pelvic vessels. The ovaries are not seen. There is no pelvic free fluid. IMPRESSION: 1. Thin endometrial stripe, within normal limits for the postmenopausal status of the patient. 2. Obscured ovaries. There are prominent bilateral adnexal vessels, a finding which can be seen with pelvic congestion. 3. Suspected 2.0 cm uterine fibroid and 5 mm uterine calcification which may be due to a calcified fibroid. Electronically signed by: Spring Castillo MD (07/20/2019 11:40 AM) [id number]
== END | disposition home or self-care (01) ==
LOC: US 10:54
PROVIDERS: ATTEND Obstetrics & Gynecology
DX: N85.4 Malposition of uterus (principal); N85.8 Other specified noninflammatory disorders of uterus
CPT/HCPCS: 76830; 76856

== ENCOUNTER → 2019-07-20 | Outpatient (CLI) | payer MEDICARE, BC ==
--- NOTE | 2019-07-20 12:09 | RAD ---
EXAM: Dual energy x-ray absorptiometry (DEXA). HISTORY: Postmenopausal female presents for osteoporosis screening. COMPARISON: None. TECHNIQUE: Dual energy x-ray absorptiometry of the lumbar spine and right hip was performed. Calculation of bone mineral density based on standard deviations above or below the expected young adult normal value (T-score) was completed. FINDINGS: The average bone mineral density in the 1st through 4th lumbar vertebrae is 1.298 g/cmxcm, corresponding with a T-score of 1.0. The average total bone mineral density in the right hip is 1.066 g/cmxcm, corresponding with a T-score of 0.9. IMPRESSION: Normal bone mineral density. Note: Definitions established by the World Health Organization: 1. Normal: T-score is -1.0 or above. 2. Osteopenia: T-score is between -1.0 and -2.5 . 3. Osteoporosis: T-score is -2.5 or below. Electronically signed by: Spring Castillo MD (07/20/2019 12:06 PM) [id number]
== END | disposition home or self-care (01) ==
LOC: DXRAD 10:55
PROVIDERS: ATTEND Registered Nurse
DX: Z78.0 Asymptomatic menopausal state (principal)
CPT/HCPCS: 77080

== ENCOUNTER 2019-07-26 16:20 | Emergency (ER) | payer MEDICARE, BC ==
[~2019-07-26] VITALS: Ht 162.6 cm; Wt 71.0 kg
[2019-07-26 16:20] VITALS: BP 150/72
--- NOTE | 2019-07-26 16:28 | PHYS DOC ---
Past History Past Medical History: CAD, High Cholesterol, Other Additional Past Medical Histor: PARKINSONS. CILIAC DISEASE Past Surgical History: Coronary Bypass Surgery, Other Additional Past Surgical Histo: CARPAL TUNNEL Alcohol Use: None Drug Use: None General Adult HPI: HPI: Patient is an 84-year-old female who presents to the emergency department for evaluation. She states she was walking in her kitchen to get a glass of water, when she lost her balance and fell backwards, from her walker, striking her head on the floor. She did not have any loss of consciousness but does complain of some pain, and has a contusion, on the left parietal area. She denies any neck pain, back pain, or extremity pain or injury. She denies any shortness of breath, chest pain, dizziness or lightheadedness, numbness, or weakness. Palpation of the affected area worsens her pain. There are no alleviating factors to her symptoms. Review of Systems: Review of Systems: Constitutional: Denies fever or chills Eyes: Denies change in visual acuity HENT: Denies nasal congestion or sore throat Respiratory: Denies cough or shortness of breath Cardiovascular: Denies chest pain or edema GI: Denies abdominal pain, nausea, vomiting, bloody stools or diarrhea : Denies dysuria Musculoskeletal: Denies back pain or joint pain Integument: Denies rash Neurologic: Denies focal weakness or sensory changes Endocrine: Denies polyuria or polydipsia Lymphatic: Denies swollen glands Psychiatric: Denies depression or anxiety Heart Score: Risk Factors: Risk Factors: DM, Current or recent (<one month) smoker, HTN, HLP, family history of CAD, obesity. Risk Scores: Score 0 - 3: 2.5% MACE over next 6 weeks - Discharge Home Score 4 - 6: 20.3% MACE over next 6 weeks - Admit for Clinical Observation Score 7 - 10: 72.7% MACE over next 6 weeks - Early Invasive Strategies Allergies: Allergies: Allergies Coded Allergies Type Severity Reaction Last Updated Verified protamine Adverse Reaction Severe Lowers blood pressure 09/20/16 Yes Physical Exam: PE: PHYSICAL EXAM: CONSTITUTIONAL: Well developed, well nourished HEAD: normocephalic, there is tenderness to palpation in the area of the contusion on the left parietal area, the remainder the cranium is atraumatic EENT: PERRL, EOMI. Conjunctivae normal color, sclerae non-icteric; moist mucous membranes. NECK: Supple, non-tender; no meningismus. There is full, painless range of motion of the cervical spine, without any focal bony midline tenderness to palpation. LUNGS: Lungs CTA, breathing even and unlabored. Normal air movement. HEART: Regular rate and rhythm, no murmur CHEST: No deformity; non-tender ABDOMEN: The abdomen is soft, and non-tender, no masses or bruits. EXTREM: Normal ROM; no deformity, no calf tenderness. Normal pulses palpable in all extremities. There is no pedal edema. SKIN: No rash; no diaphoresis NEURO: Alert; normal speech and cognition; CN's grossly intact; strength grossly intact without focal deficit. BACK: No CVA TTP. There is no bony tenderness to palpation of the thoracic or lumbar spine. EKG: EKG: [] Radiology/Procedures: Radiology/Procedures: PROCEDURE: CT HEAD WO CONTRAST CT head without contrast dated 07/26/2019. Comparison made to 12/17/2018. CLINICAL INDICATION: Pain after fall. TECHNIQUE: Contiguous axial imaging the head was performed from skull base to vertex. No contrast administered. One or more of the following individualized dose reduction techniques were utilized for this examination: 1. Automated exposure control 2. Adjustment of the mA and/or kV according to patient size 3. Use of iterative reconstruction technique. FINDINGS: Ventricles and sulci are moderately prominent for age. No midline shift or mass effect. Mild to moderate patchy low density in the deep/subcortical periventricular white matter. No hemorrhage or extra-axial collection. Posterior fossa and brainstem unremarkable. Mild mucosal thickening of the left sphenoid sinus. Visualized paranasal sinuses and mastoid air cells are otherwise clear. No apparent calvarial abnormality. IMPRESSION: 1. No evidence of acute intracranial hemorrhage or mass. 2. Mild chronic small vessel ischemic changes and atrophy.[] Course & Med Decision Making: Course & Med Decision Making CT head: Negative for acute disease Patient remains stable. I discussed test results, the need for close follow-up, and return precautions. Dragon Disclaimer: Amandaon Disclaimer: This electronic medical record was generated, in whole or in part, using a voice recognition dictation system. Departure Departure: Impression: Primary Impression: Closed head injury Additional Impressions: Accidental fall Parkinsons disease Disposition: 01 HOME, SELF-CARE Condition: STABLE Referrals: [facility] ([facility]P) Patient Instructions: Fall Prevention and Home Safety, Head Injury, Adult JB JOE MD July 26, 2019 16:28
--- NOTE | 2019-07-26 17:19 | RAD ---
CT head without contrast dated 07/26/2019. Comparison made to 12/17/2018. CLINICAL INDICATION: Pain after fall. TECHNIQUE: Contiguous axial imaging the head was performed from skull base to vertex. No contrast administered. One or more of the following individualized dose reduction techniques were utilized for this examination: 1. Automated exposure control 2. Adjustment of the mA and/or kV according to patient size 3. Use of iterative reconstruction technique. FINDINGS: Ventricles and sulci are moderately prominent for age. No midline shift or mass effect. Mild to moderate patchy low density in the deep/subcortical periventricular white matter. No hemorrhage or extra-axial collection. Posterior fossa and brainstem unremarkable. Mild mucosal thickening of the left sphenoid sinus. Visualized paranasal sinuses and mastoid air cells are otherwise clear. No apparent calvarial abnormality. IMPRESSION: 1. No evidence of acute intracranial hemorrhage or mass. 2. Mild chronic small vessel ischemic changes and atrophy. Electronically signed by: Tawanda Workman MD (07/26/2019 5:16 PM) RENNY
== END 2019-07-26 17:40 | disposition home or self-care (01) ==
LOC: ER 16:20
DX: S00.03XA Contusion of scalp, initial encounter (principal); I25.810 Atherosclerosis of coronary artery bypass graft(s) without angina pectoris; E78.00 Pure hypercholesterolemia, unspecified; G20 Parkinson's disease; Z88.8 Allergy status to other drugs, medicaments and biological substances; W01.0XXA Fall on same level from slipping, tripping and stumbling without subsequent striking against object, initial encounter; Y93.89 Activity, other specified; Y92.090 Kitchen in other non-institutional residence as the place of occurrence of the external cause; Y99.8 Other external cause status
CPT/HCPCS: 70450; 99284-25

== ENCOUNTER → 2019-11-02 | Outpatient (CLI) | payer MEDICARE, BC ==
[2019-11-03 05:09] LABS: DHEA SO4 147.2 ug/dL (13.9-142.8); ESTRADIOL LEVEL 67.2 pg/mL (.); PROGESTERONE 8.5 ng/mL (.); TESTOSTERONE TOTAL 22 ng/dL (3-41)
== END | disposition home or self-care (01) ==
LOC: LAB 13:04
PROVIDERS: ATTEND Family Medicine
DX: E55.9 Vitamin D deficiency, unspecified (principal); N95.9 Unspecified menopausal and perimenopausal disorder; Z86.39 Personal history of other endocrine, nutritional and metabolic disease
CPT/HCPCS: 36415; 82306; 82627; 82670; 84144; 84403

== ENCOUNTER → 2019-11-17 | Outpatient (CLI) | payer MEDICARE, BC ==
--- NOTE | 2019-11-17 13:22 | RAD ---
VIDEO SWALLOW STUDY History: Dysphagia Findings: Patient was given a variety of consistencies of barium with a member of the speech pathology department present. There were no episodes of laryngeal penetration or aspiration with the various tested consistencies. There was somewhat delayed initiation of swallow. Fluoroscopy time 2.3 minutes, one image Impression: 1. There were no episodes of laryngeal penetration or aspiration. Electronically signed by: Quintin Thomas MD (11/17/2019 1:19 PM) [id number]
== END | disposition home or self-care (01) ==
LOC: DXRAD 10:14
PROVIDERS: ATTEND Psychiatry & Neurology Neurology
DX: G20 Parkinson's disease (principal); R13.10 Dysphagia, unspecified
CPT/HCPCS: 74230; 92526; 92611

== ENCOUNTER → 2019-12-06 | Outpatient (CLI) | payer MEDICARE, BC ==
--- NOTE | 2019-12-06 11:19 | RAD ---
EXAMINATION: ESOPHOGRAM/BARIUM SWALLOW (ESOPHAGRAM) CLINICAL HISTORY: Dysphagia Technique: Esophagram performed utilizing oral administration of thick and thin barium. - Number of Images: 14 - Fluoroscopy Time: 0.5 minutes Comparison: None FINDINGS: Hypopharynx and cervical esophagus unremarkable. No evidence of esophageal stricture, ring, or mass. No evidence of esophagitis. No hiatal hernia. No reflux elicited despite provocative maneuvers. Incidentally noted tertiary contractions, otherwise esophageal motility within normal limits. IMPRESSION: Tertiary contractions, otherwise unremarkable exam Electronically signed by: Lonnie Kapoor DO (12/06/2019 11:16 AM) [id number]
== END | disposition home or self-care (01) ==
LOC: RAD 09:03
PROVIDERS: ATTEND Family Medicine
DX: R13.10 Dysphagia, unspecified (principal)
CPT/HCPCS: 74220